=== PATIENT | male | born 1955 | race Caucasian/White ===

== ENCOUNTER → 2024-10-13 | Emergency (ER) | payer MEDICARE, OTHER ==
[~2024-10-13] VITALS: Ht 177.8 cm; Wt 131.5 kg
[~2024-10-13] MED LIST: ACET-3117 PO; BISA10EN RC; ENOX40DI SQ; GABA-532 PO; HYDR-3980 PO; INSULIN GLARGINE SUBCUT; IV NORMAL SALINE 1000 ML BAG IV ONE; MAGN400O6 PO; METO25TA6 PO; MULT-213 PO; PANT40TA49 PO; POLY250017 PO; TAMS-3 PO
[2024-10-13 11:48] VITALS: O2SAT 94
[2024-10-13] MEDS: IV NORMAL SALINE 1000 ML BAG IV ONE (12:15)
[2024-10-13 13:04] LABS: BASOPHILS # (AUTO) 0.1 K/UL (0.0-0.2); BASOPHILS % (AUTO) 1.5 % (0.0-2.0); EOSINOPHILS # (AUTO) 0.3 K/uL (0.0-0.7); EOSINOPHILS % (AUTO) 3.3 % (0.0-7.0); HEMATOCRIT 35.7 % (36.7-47.1); HEMOGLOBIN 12.2 g/dL (12.5-16.3); LYMPHOCYTES # (AUTO) 1.1 K/uL (0.8-4.8); LYMPHOCYTES % (AUTO) 13.4 % (20.5-51.5); MEAN CORPUSCULAR HEMOGLOBIN 31.3 uug (23.8-33.4); MEAN CORPUSCULAR HGB CONC 34 g/dL (32.5-36.3); MEAN CORPUSCULAR VOLUME 91.8 fL (73.0-96.2); MONOCYTES # (AUTO) 0.7 K/uL (0.1-1.30); MONOCYTES % (AUTO) 7.8 % (0.0-11.0); NEUTROPHILS # (AUTO) 6.3 K/uL (1.8-8.9); PLATELET COUNT (AUTO) 193 K/uL (152-348); RED BLOOD CELL COUNT(AUTO) 3.89 MIL/uL (4.06-5.63); RED CELL DISTRIBUTION WIDTH 14.4 % (12.1-16.2); WHITE BLOOD COUNT (AUTO) 8.6 K/uL (3.6-10.2)
[2024-10-13 13:05] LABS: CALCIUM 8.9 mg/dL (8.5-10.1); CARBON DIOXIDE 30 mmol/L (21-32); CHLORIDE 103 mmol/L (98-107); CREATININE 1.7 mg/dL (0.6-1.3); GLUCOSE 99 mg/dL (74-106); POTASSIUM 5.2 mmol/L (3.5-5.1); SODIUM SERUM 141 mmol/L (136-145); UREA NITROGEN, BLOOD 49 mg/dL (7-18)
[2024-10-13 13:19] LABS: ALANINE AMINOTRANSFERASE 17 U/L (16-63); ALBUMIN 2.7 g/dL (3.4-5.0); ALKALINE PHOSPHATASE 63 U/L (50-136); ASPARTATE AMINOTRANSFERASE 11 U/L (15-37); BILIRUBIN,DIRECT 0.1 mg/dL (0.0-0.2); BILIRUBIN,TOTAL 0.4 mg/dL (0.2-1.0); NT-PRO BNP 1022 pg/mL (0-125); TOTAL PROTEIN, SERUM 6.8 g/dL (6.4-8.2)
== END | disposition left against medical advice (07) ==
LOC: ER 11:38
DX: R06.00 Dyspnea, unspecified (principal); M19.90 Unspecified osteoarthritis, unspecified site; J98.11 Atelectasis; M10.9 Gout, unspecified; Z79.899 Other long term (current) drug therapy
CPT/HCPCS: 36415; 71045; 84550; 85025; 85730; A4606; A4663